=== PATIENT | male | born 1960 | race Two or more races ===

== ENCOUNTER 2019-07-06 00:47 | Inpatient (IN) | payer OTHER ==
[2019-07-06] VITALS (22 sets, daily range): BP systolic 135–172; BP diastolic 66–87
[~2019-07-06] VITALS: Ht 175.3 cm; Wt 93.4 kg
--- NOTE | 2019-07-06 00:50 | NUR ---
PT BIB RA FROM HOME C/O ALTERED MENTAL STATUS. ACCORDING TO RA REPORT, PT WAS BENDING DOWN TO GET SOMETHING WHEN HE LOST CONSCIOUSNESS AND WENT DOWN TO THE FLOOR. PATIENT DID NOT REGAIN CONSCIOUSNESS. MD AT BEDSIDE. RT AT BEDSIDE. RN AT BEDSIDE. AWAITING MD'S ORDERS.
--- NOTE | 2019-07-06 00:53 | NUR ---
SUCCINYLCHOLINE PUSHED 150MG IVP
[2019-07-06] MEDS ORDERED: PROPOFOL 100 ML ONE (00:54)
--- NOTE | 2019-07-06 00:54 | NUR ---
Patient intubated Addendum: 07/06/19 at 0134 by YUKO size 7, with 23 at the lip
--- NOTE | 2019-07-06 00:55 | NUR ---
CODE STROKE CALLED
--- NOTE | 2019-07-06 00:55 | NUR ---
Max person in ED - 07/06/19 at 0153 by YUKO PROPOFOL AT RATE OF 2MG
--- NOTE | 2019-07-06 00:55 | NUR ---
PROPOFOL AT RATE OF 2MG
[2019-07-06] MEDS ORDERED: IV NS 0.9% 500 ML BAG IV ONE (01:00)
[2019-07-06] MEDS ORDERED: SUCCINYLCHOLINE CHLORIDE 20 MG/ML VIAL IV ONE ×2 (01:00→11:04)
--- NOTE | 2019-07-06 01:03 | NUR ---
rushed to CT
[2019-07-06] MEDS ORDERED: CT SWABBABLE VALVE TRANS SET 1 EA INFUS.SET MC ONE (01:05)
[2019-07-06] MEDS ORDERED: IOHEXOL-350 100 ML VIAL IV ONE ×2 (01:05→02:11)
[2019-07-06 01:11] LABS: BASOPHILS # (AUTO) 0.2 /CMM (0.0-0.2); BASOPHILS % (AUTO) 1.6 % (0.0-2.0); EOSINOPHILS % (AUTO) 6.6 % (0.0-6.0); HEMATOCRIT 28 % (39-51); HEMOGLOBIN 8.5 g/dL (13.5-17.5); LYMPHOCYTES # (AUTO) 2.5 /CMM (0.8-4.8); LYMPHOCYTES % (AUTO) 25.9 % (20.0-44.0); MEAN CORPUSCULAR HGB CONC 31 g/dl (31.0-36.0); MEAN CORPUSCULAR VOLUME 79 fL (80-96); MONOCYTES # (AUTO) 1.2 /CMM (0.1-1.30); MONOCYTES % (AUTO) 12.2 % (2.0-12.0); NEUTROPHILS # (AUTO) 5.2 /CMM (1.8-8.9); NEUTROPHILS % (AUTO) 53.7 % (43.0-81.0); PLATELET COUNT (AUTO) 317 /CMM (150-450); RED BLOOD CELL COUNT(AUTO) 3.55 MIL/uL (4.5-6.0); WHITE BLOOD COUNT (AUTO) 9.6 K/uL (4.3-11.0)
--- NOTE | 2019-07-06 01:15 | NUR ---
RT NOTE Pt rec'd on 100% NRB mask with orophrygeal airway in place. pt altered and showed signs of resp distress. pt orally intubated via ETT sz #7.0 secured @ 23CM at the lip per airway protection and MD request. Colormetric CO2 color change confirm. pt auscultated for clear b/s bilaterally. Pt placed on [facility] vent on AC mode settings per md request. Waiting on Chest x ray results. Post intubation ABG to be taken in 15 minutes. Alarms are set and audible. Vent plugged into red outlet. ambu bag bedside. Will continue to monitor closely. Addendum: 07/06/19 at 0147 by JASPER SAMANO RT Amended: Links added.
--- NOTE | 2019-07-06 01:15 | NUR ---
ac at 14. Tidal Volume at 550 100% FiO2. Peep 5
--- NOTE | 2019-07-06 01:22 | NUR ---
PROPOFOL RATE AT 5MCG
--- NOTE | 2019-07-06 01:22 | NUR ---
Max person in ED - 07/06/19 at 0152 by YUKO PROPOFOL RATE AT 5MG
--- NOTE | 2019-07-06 01:27 | NUR ---
[facility]POKE WITH [facility], REQUESTED PATIENTS RECORDS TO BE FAXED OVER.
[2019-07-06 01:31] LABS: ALANINE AMINOTRANSFERASE 44 U/L (12-78); ALKALINE PHOSPHATASE 150 U/L (46-116); ASPARTATE AMINOTRANSFERASE 55 U/L (15-37); BILIRUBIN,DIRECT 0.1 mg/dL (0.0-0.2); BILIRUBIN,TOTAL 0.2 mg/dL (0.2-1.0); CALCIUM, SERUM 7.8 mg/dL (8.5-10.1); CARBON DIOXIDE 22 mmol/L (21-32); CHLORIDE 102 mmol/L (98-107); CREATININE 1.3 mg/dL (0.6-1.3); GLUCOSE 193 mg/dL (74-106); SODIUM SERUM 146 mmol/L (136-145); UREA NITROGEN, BLOOD 12 mg/dL (7-18)
[2019-07-06 01:36] LABS: POTASSIUM 2.6 mmol/L (3.5-5.1)
--- NOTE | 2019-07-06 01:41 | NUR ---
LAMAR CATH 16FR STARTED. STAT LOCK ON LEFT THIGH
[2019-07-06] MEDS ORDERED: IV NS 0.9% 1,000 ML IV ONE (01:42)
[2019-07-06] MEDS ORDERED: PROPOFOL 100 ML IV ONE (01:42)
[2019-07-06] MEDS ORDERED: POTASSIUM CL. PREMIX PERIPHER. 50 ML IV ONE (01:42)
--- NOTE | 2019-07-06 01:43 | NUR ---
URINE COLLECTED AND SENT TO LAB.
--- NOTE | 2019-07-06 01:44 | NUR ---
AT BEDSIDE FOR RE-EVAL
[2019-07-06 01:45] LABS: CHOLESTEROL 108 mg/dL (<200); HDL CHOLESTEROL 40 mg/dL (40-60); LDL 52 mg/dL (0-99); TRIGLYCERIDES 147 mg/dL (30-150)
[2019-07-06] MEDS ORDERED: POTASSIUM CL. PREMIX PERIPHER. 50 ML ONE (01:48)
--- NOTE | 2019-07-06 01:58 | NUR ---
RT AT BEDSIDE FOR ABG DRAW
[2019-07-06] MEDS ORDERED: IV NS 0.9% 250 ML IV ONE (02:11)
[2019-07-06 02:12] LABS: ABG BASE EXCESS -4.9 mmol/L; ABG OXYGEN SATURATION 99.4 % (92.0-98.5); ABG PCO2 33.4 mmHg (35.0-45.0); ABG PH 7.385 (7.350-7.450); ABG PO2 556.4 mmHg (75.0-100.0); AaDO2 123.2 mmHg; MetHb 0.8 % (0.0-1.5); O2Hb 96.6 % (94.0-97.0); SITE, ABG Right Radial; VENT MODE, BG AC 14 550 100% +5
--- NOTE | 2019-07-06 02:12 | NUR ---
Patient sent for Stat CT
--- NOTE | 2019-07-06 02:29 | NUR ---
returned from ct
--- NOTE | 2019-07-06 02:30 | NUR ---
Patient's FiO2 setting now at 40%
[2019-07-06 03:17] LABS: ABG BASE EXCESS -3.9 mmol/L; ABG OXYGEN SATURATION 97.4 % (92.0-98.5); ABG PCO2 36.5 mmHg (35.0-45.0); ABG PH 7.374 (7.350-7.450); ABG PO2 119.6 mmHg (75.0-100.0); AaDO2 123.6 mmHg; MetHb 0.6 % (0.0-1.5); O2Hb 95.8 % (94.0-97.0); SITE, ABG Right Radial; VENT MODE, BG AC 14 550 40% +5
--- NOTE | 2019-07-06 03:41 | NUR ---
CALLED [facility] SPOKE WITH LINDA, HARI MONAE WAS PAGED AND WILL CALL US BACK SHORTLY.
--- NOTE | 2019-07-06 03:51 | NUR ---
BARBARA ESCOBEDO TALKING WITH HARI ESCOBEDO
[2019-07-06] MEDS ORDERED: OSELTAMIVIR PHOSPHATE SUSP 6 MG/ML BOTTLE PO ONE (04:00)
--- NOTE | 2019-07-06 04:00 | NUR ---
RECEIVED REPORT FROM TOSHIA MENA FOR KEESHA.
--- NOTE | 2019-07-06 04:06 | NUR ---
REPORT GIVEN TO CHI POPE. Addendum: 07/06/19 at 0406 by YUKO FOR KEESHA.
--- NOTE | 2019-07-06 04:16 | NUR ---
LUDY IS ROOMMATE - CELL # [phone]
[2019-07-06] MEDS ORDERED: MAGNESIUM HYDROXIDE 30 ML UDC PO PRN (04:30)
[2019-07-06] MEDS ORDERED: ZOLPIDEM TARTRATE 5 MG TABLET PO PRN (04:30)
[2019-07-06] MEDS ORDERED: ONDANSETRON HCL/PF 4 MG/2 ML VIAL IVP PRN (04:30)
[2019-07-06] MEDS ORDERED: Z GUARD REMEDY 2 OZ OINT TP PRN (04:30)
--- NOTE | 2019-07-06 05:28 | NUR ---
ICU 262
[2019-07-06] MEDS ORDERED: Magnesium 1GM/D5W 100ML PREMIX 100 ML IV ONE (05:39)
--- NOTE | 2019-07-06 05:55 | NUR ---
RN OPENING NOTES RECEIVED PATIENT VIA GURNEY, INTUBATED AND SEDATED. MECHANICAL VENT SETTINGS: AC 14, TV 550, FIO2 40%, PEEP 5. SATURATING 100% AT THE MOMENT, NO SOB OR RESPIRATORY DISTRESS NOTED. ON TELE MONITOR SR WITH PVC'S WITH HR 80'S-90'S. IV SITES RIGHT FA 18G, LEFT HAND 18G, AND RIGHT EJ 18G, ALL FLUSHING AND PATENT; RECEIVED PT WITH PROPOFOL RUNNING AT 5MCG. BILATERAL SOFT WRIST RESTRAINTS NOTED FOR PT SAFETY. LAMAR CATH INTACT, DRAINING YELLOW URINE NOTED. SAFETY MEASURES IN PLACE, BED IN LOW AND LOCKED POSITION, SIDE RAILS UP X2, CALL LIGHT WITHIN EASY REACH, HOB ELEVATED. WILL CONTINUE TO MONITOR CLOSELY.
[2019-07-06] MEDS: PROPOFOL 100 ML IV PRN ×2 (06:16→17:35)
[2019-07-06] MEDS: IV NS 0.9% 1,000 ML IV PRN ×2 (06:17→18:16)
[2019-07-06] MEDS: Magnesium 1GM/D5W 100ML PREMIX 100 ML IV SCH ×6 (06:17→14:41)
[2019-07-06 07:19] LABS: BASOPHILS # (AUTO) 0.1 /CMM (0.0-0.2); BASOPHILS % (AUTO) 1.4 % (0.0-2.0); EOSINOPHILS % (AUTO) 1.4 % (0.0-6.0); HEMATOCRIT 28 % (39-51); HEMOGLOBIN 8.6 g/dL (13.5-17.5); LYMPHOCYTES % (AUTO) 17.3 % (20.0-44.0); MEAN CORPUSCULAR HGB CONC 31 g/dl (31.0-36.0); MEAN CORPUSCULAR VOLUME 76 fL (80-96); MONOCYTES # (AUTO) 0.6 /CMM (0.1-1.30); NEUTROPHILS # (AUTO) 4.2 /CMM (1.8-8.9); NEUTROPHILS % (AUTO) 69.9 % (43.0-81.0); PLATELET COUNT (AUTO) 280 /CMM (150-450); RED BLOOD CELL COUNT(AUTO) 3.61 MIL/uL (4.5-6.0)
--- NOTE | 2019-07-06 07:30 | NUR ---
TROUBLE CLERK NOTE CALLED PHARMACY NOTIFIED THAT WE NEED TO HAVE 1 MAG IV TO ADMINISTERED SPOKE WITH TAYA STATED THAT WILL BRING IT WILL F\U
[2019-07-06 07:32] LABS: CALCIUM, SERUM 7.3 mg/dL (8.5-10.1); PHOSPHORUS 3.5 mg/dL (2.5-4.9)
--- NOTE | 2019-07-06 07:34 | NUR ---
RN CLOSING NOTES PATIENT IN BED, SEDATED. ALL HOSPITALIST ADMITTING ORDER ATTENDED. MECHANICAL VENT SETTINGS ORDERED, SATURATING 99% AT THE MOMENT, NO SOB OR RESPIRATORY DISTRESS NOTED. ON TELE MONITOR SR WITH HR 90'S. ALL IV SITES FLUSHING AND PATENT; PROPOFOL RUNNING AT 5MCG. NS RUNNING AT 75ML/HR, NO INFILTRATION NOTED. BILATERAL SOFT WRIST RESTRAINTS NOTED FOR PT SAFETY. LAMAR CATH INTACT. SAFETY MEASURES IN PLACE, BED IN LOW AND LOCKED POSITION, SIDE RAILS UP X2, CALL LIGHT WITHIN EASY REACH, HOB ELEVATED. 1 BAG OF MAGNESIUM GIVEN, 1 MORE BAG (1MG) NEEDS TO BE GIVEN. ENDORSED TO AM RN FOR KEESHA.
--- NOTE | 2019-07-06 08:00 | NUR ---
MAPPING ANALYST NOTE ,PATIENT IN BED SEDATED ON PROCOSOL DRIP AT THIS TIME IN TELE MONITOR SR WITH PVC HR 95 O2 SAT 100% FOE NOW , WITH LAMAR CATH TO GRAVITY WITH YELLOW COLOR URINE ON NPO STATUS AT THIS TIME, WITH SOFT RESTRAIN ORDERED ON IVF ORDERED RT FA RT EI LT HAND HL INTACT AND FLUSHED WELL, WOUND CARE NURSE AT BEDSIDE AND DR HE AT BEDSIDE WITH OK OFF PROPOFOL TO SEE IF RESPONSE TO VERBAL AND TACITLY SIMPLY, BED IN LOWEST AND LOCKED POSITION , ORTAL SUCTION DONE
--- NOTE | 2019-07-06 08:10 | NUR ---
WOUND CARE CONSULT: PT PRESENTS WITH LEFT ARM SKIN TEAR, DRY SCRATCH NOTED TO LOWER BACK, PRESENT ON ADMISSION. PT CURRENTLY INTUBATED. LAMAR CATH NOTED. RECOMMENDATIONS MADE FOR WOUND CARE AND SKIN PROTECTION. DISCUSSED WITH NURSING STAFF. WILL SEE PRN. ESCOBEDO IN AGREEMENT WITH PLAN OF CARE. Addendum: 07/06/19 at 0812 by TREY ABREU WNDNU Amended: Links added.
[2019-07-06 08:24] LABS: MAGNESIUM 1.2 mg/dL (1.8-2.4); POTASSIUM 2.6 mmol/L (3.5-5.1)
[2019-07-06] MEDS: ENOXAPARIN SODIUM 40 MG/0.4 ML DISP.SYRIN SQ SCH (08:29)
[2019-07-06] MEDS ORDERED: GLIP10TA21 PO (08:30)
[2019-07-06] MEDS ORDERED: OMEP20TA5 PO (08:30)
--- NOTE | 2019-07-06 08:44 | NUR ---
STEEL CHIPPER NOTE 2ED ECHO DOING NOW
[2019-07-06] MEDS: POTASSIUM CHLORIDE 20 MEQ POWDER PACKET NG SCH ×4 (09:48→12:08)
--- NOTE | 2019-07-06 09:52 | NUR ---
TRIMMER PRESS CLIPPINGS NOTE OG INSERTED PLACEMENT CHECKED BY AUSCULTATION OF AIR ,CHEST X RAY ORDERED
[2019-07-06 09:59] LABS: THYROID STIMULATING HORMONE 0.803 uIU/mL (0.358-3.74)
[2019-07-06 10:13] LABS: PHOSPHORUS 3.5 mg/dL (2.5-4.9)
--- NOTE | 2019-07-06 12:07 | NUR ---
BUCKET HOOKER NOTE CALLED TO DR QUESADA NOTIFIED THAT T NOW 101.0 ORDERED BLOOD CX AND OK TO GIVE TYLENOL,AFTERWARDS, WILL F\U
[2019-07-06] MEDS: ACETAMINOPHEN 325 MG TABLET PO PRN ×2 (13:06→20:20)
--- NOTE | 2019-07-06 13:36 | NUR ---
RT NOTE: PATIENT RECEIVED ORALLY INTUBATED WITH 7.0 ETT SECURED AT 24 CM MID LIP LINE VIA ANCHOR FAST ON PB 840 VENT. ALARMS VERIFIED AND AUDIBLE. SUCTIONED AND LAVAGED MODERATE-LARGE AMOUNT OF THICK WHITE SECRETIONS. VENT PLUGGED INTO RED OUTLET. AMBU BAG AT [facility].
[2019-07-06 13:39] LABS: CALCIUM, SERUM 7.6 mg/dL (8.5-10.1); CREATININE 0.8 mg/dL (0.6-1.3); MAGNESIUM 2.2 mg/dL (1.8-2.4); POTASSIUM 3.3 mmol/L (3.5-5.1)
--- NOTE | 2019-07-06 14:48 | NUR ---
WAIVER ANALYST NOTE ON DIPRIVAN DRIP ORDERED AT 15 MCG\KG\MIN ,STILL ON SOFT RESTRAIN ORDERED, UNABLE TO REMOVE AT THIS TIME AT RISK TO REMOVE ALL LINES
--- NOTE | 2019-07-06 15:57 | NUR ---
ICU TN NOTE BRITT NEURO RN ORE DRYER AT BEDSIDE AWARE THAT YADI T RECPOME TO TACITLY STIMULI ONLY ON BOTH LEGS AND NO RESPONSE TO VERBAL STIMULI ALSO AWAITING FOE EEG
--- NOTE | 2019-07-06 17:00 | NUR ---
INSTRUMENT LENS GRINDER NOTE BECOME MORE AGITATED AND RESTLESS INCREASED DIPRIVAN TO 15 MCG\KG\MIN, RR 36
--- NOTE | 2019-07-06 17:05 | NUR ---
SANITATION LABORER NOTE EGG DOING NOW, UA COLLECTED ORDERED
[2019-07-06 18:10] LABS: APPEARANCE,URINE SL CLOUDY (CLEAR); BILIRUBIN,URINE NEGATIVE (NEGATIVE); BLOOD, URINE LARGE Ery/uL (NEGATIVE); COLOR,URINE YELLOW (YELLOW); KETONES,URINE TRACE (NEGATIVE); LEUKOCYTE ESTERASE ,URINE NEGATIVE (NEGATIVE); NITRITE, URINE NEGATIVE (NEGATIVE); PROTEIN,URINE TRACE mg/dl (NEGATIVE); UGLUCOSE 500 MG/DL mg/dL (NEGATIVE)
[2019-07-06 18:26] LABS: BACTERIA,URINE Few /HPF (None Seen); RBC,URINE TOO NUMEROUS TO COUN /HPF (0-2); SQUAMOUS EPITHELIAL CELL,UR Few /HPF (None Seen); WBC,URINE 0-2 /HPF (0-3)
--- NOTE | 2019-07-06 18:36 | NUR ---
MANAGER ANDROID NOTE ON PROPOFOL DRIP ORDERED AT 20MCG\KG\MIN , TITRATED PER PROTOCOL, PATIENT BECOME MORE RESTLESS HR 111, FAMILY AT BEDSIDE, CONT ON IVF ORDERED WITH LAMAR CATH TO GRAVITY, CONT ON VENT SETTING ORDERED ORAL SUCTION DONE , KEEP CLEAN DRY , .BED IN LOWEST AND LOCKED POSITION WILL CONT TO MONDOR
--- NOTE | 2019-07-06 20:25 | NUR ---
FOOD SELECTOR: TYLENOL GIVEN FOR ORAL/AXILLARY AZWS=415.8. SR-ST ON TELE MONITOR WT HR IN THE 90s TO LOW 100s. REMAINS SEDATED ON PROPOFOL DRIP AT 20MCG/KG/MIN. ENDOTRACHEAL SUCTIONING DONE WT POSITIVE GAG REFLEX. WITHDRAWS TO LOCALIZED PAIN. WILL CONTINUE TO MONITOR. SAFETY PRECAUTION NOTED AT ALL TIMES.
--- NOTE | 2019-07-06 21:30 | NUR ---
RETAIL COMMISSION SALES ASSOCIATE: REASSESSED AFTER GIVEN TYLENOL AND COOLING MEASURES WT ORAL TEMP. IMPROVED AT 99.5. WILL CONTINUE TO MONITOR.
[2019-07-07] VITALS (28 sets, daily range): BP systolic 133–182; BP diastolic 70–99
[2019-07-07] MEDS: PROPOFOL 100 ML IV PRN ×7 (01:05→20:26)
[2019-07-07 04:44] LABS: BASOPHILS # (AUTO) 0.1 /CMM (0.0-0.2); BASOPHILS % (AUTO) 1.4 % (0.0-2.0); EOSINOPHILS % (AUTO) 1.1 % (0.0-6.0); HEMATOCRIT 26 % (39-51); HEMOGLOBIN 8.1 g/dL (13.5-17.5); LYMPHOCYTES # (AUTO) 1.5 /CMM (0.8-4.8); LYMPHOCYTES % (AUTO) 16.3 % (20.0-44.0); MEAN CORPUSCULAR HGB CONC 31 g/dl (31.0-36.0); MEAN CORPUSCULAR VOLUME 77 fL (80-96); MONOCYTES # (AUTO) 1.1 /CMM (0.1-1.30); MONOCYTES % (AUTO) 11.8 % (2.0-12.0); NEUTROPHILS # (AUTO) 6.4 /CMM (1.8-8.9); NEUTROPHILS % (AUTO) 69.4 % (43.0-81.0); PLATELET COUNT (AUTO) 248 /CMM (150-450); RED BLOOD CELL COUNT(AUTO) 3.35 MIL/uL (4.5-6.0); WHITE BLOOD COUNT (AUTO) 9.3 K/uL (4.3-11.0)
[2019-07-07 05:35] LABS: ALANINE AMINOTRANSFERASE 32 U/L (12-78); ALBUMIN 2.5 g/dL (3.4-5.0); ALKALINE PHOSPHATASE 112 U/L (46-116); ASPARTATE AMINOTRANSFERASE 26 U/L (15-37); BILIRUBIN,TOTAL 0.4 mg/dL (0.2-1.0); CALCIUM, SERUM 7.5 mg/dL (8.5-10.1); CARBON DIOXIDE 29 mmol/L (21-32); CHLORIDE 107 mmol/L (98-107); CREATININE 0.6 mg/dL (0.6-1.3); GLUCOSE 192 mg/dL (74-106); PHOSPHORUS 2.8 mg/dL (2.5-4.9); POTASSIUM 3.1 mmol/L (3.5-5.1); SODIUM SERUM 145 mmol/L (136-145); TOTAL PROTEIN, SERUM 6.2 g/dL (6.4-8.2); UREA NITROGEN, BLOOD 8 mg/dL (7-18)
--- NOTE | 2019-07-07 06:40 | NUR ---
EXPRESSIVE THERAPIST: ORAL TEMP. AT 99.5. CONTINUE COOLING MEASURES. SBP IN THE 150s-170s ESPECIALLY AFTER TURNING AND REPOSITIONING/BED BATH. WILL ENDORSE TO DAY SHIFT FOR FURTHER MD EVAL/RECOMMENDATION OF BP MEDS. REMAINS SEDATED ON DIPRIVAN AT 50MCG/KG/MIN. WITHDRAWS TO TOUCH/LIGHT PAIN. SAFETY PRECAUTION NOTED AT ALL TIMES.
[2019-07-07] MEDS: IV NS 0.9% 1,000 ML IV PRN (06:48)
--- NOTE | 2019-07-07 06:55 | NUR ---
EMR ANALYST: DR. RUSSELL AT BEDSIDE AND MADE AWARE OF HIGH BP TRENDS. AWAITING ORDERS.
--- NOTE | 2019-07-07 07:00 | NUR ---
RN OPENING NOTES PT ON DIPROVAN DRIP AT 50MCG. PT IS INTUBATED AND TOLERATING WELL. PT IS ST ON MONITOR HR 110. PT HAS A LAMAR DRAINING TO GRAVITY.BED IS IN LOWEST AND LOCKED POSITION WITH CALL LIGHT IN REACH. PT IS CURRENTLY SEDATED. REPORT RECEIVED FROM HEAD BOOKKEEPER RN. WILL CONTINUE TO MONITOR.
[2019-07-07] MEDS ORDERED: POTASSIUM CHLORIDE 20 MEQ POWDER PACKET NG SCH (08:00)
[2019-07-07 08:03] LABS: ABG BASE EXCESS 4.6 mmol/L; ABG OXYGEN SATURATION 95.3 % (92.0-98.5); ABG PCO2 37.8 mmHg (35.0-45.0); ABG PH 7.491 (7.350-7.450); ABG PO2 81.8 mmHg (75.0-100.0); AaDO2 87.7 mmHg; COHb 0.5 % (0.5-1.5); MetHb 0.5 % (0.0-1.5); O2Hb 94.3 % (94.0-97.0); PEEP,BG 5 cm H2O; SITE, ABG Right Radial; VT, ABG 550 mL
[2019-07-07] MEDS: ENOXAPARIN SODIUM 40 MG/0.4 ML DISP.SYRIN SQ SCH (09:02)
[2019-07-07] MEDS: NITROGLYCERIN 30 GM TUBE TP SCH ×2 (09:47→20:32)
[2019-07-07] MEDS ORDERED: POTASSIUM CL. PREMIX PERIPHER. 50 ML IV SCH (11:00)
[2019-07-07] MEDS ORDERED: DEXTROSE 50%-WATER 50 ML DISP.SYRIN IV PRN (11:30)
[2019-07-07] MEDS: BLOOD SUGAR DIAGNOSTIC 1 EACH STRIP IN SCH ×3 (12:04→23:50)
[2019-07-07] MEDS ORDERED: LORAZEPAM INJ 2 MG/ML VIAL IV PRN (13:00)
[2019-07-07] MEDS ORDERED: LEVETIRACETAM SOL (5 ML) 100 MG/ML UDC PO ONE (13:00)
--- NOTE | 2019-07-07 14:46 | NUR ---
SPOKE WITH GALILEO FROM CASE MANAGEMENT, PER GALILEO PT WILL BE TRANSFERRED TO [facility] AWAITING FOR WHICH [facility] FACILITY.
--- NOTE | 2019-07-07 18:34 | NUR ---
SPOKE WITH ALESSIA FROM [facility]. [facility] REQUESTING LUMBAR PUNCTURE PRIOR TO TRANSFER TO RULE OUT MENINGITIS. ROOMMATE CLAIMING HE HAS PAPERWORK DESIGNATING HIM MEDICAL DECISION MAKER FOR PT. AWAITING PAPERWORK FOR CONSENT TO BE SIGNED.
--- NOTE | 2019-07-07 19:15 | NUR ---
RN CLOSING NOTES REPORT GIVEN TO DIGITAL STRATEGIST SENIOR MANAGER RN FOR KEESHA. NO SIGNIFICANT CHANGES DURING SHIFT. PT HAS NO FEVERS AND IS SR ON TELE MONITOR 76 CURRENTLY. BED IS LOCEKD AND IN LOWEST POSITION WILL ENDORSE KEESHA TO DIGITAL STRATEGIST SENIOR MANAGER RN.
[2019-07-07] MEDS: LEVETIRACETAM SOL (5 ML) 100 MG/ML UDC PO SCH (20:31)
[2019-07-07] MEDS: HYDROCODONE/APAP 5/325MG 1 EACH TABLET PO PRN (23:35)
[2019-07-08] VITALS (35 sets, daily range): BP systolic 126–171; BP diastolic 66–85
[2019-07-08] MEDS: PROPOFOL 100 ML IV PRN ×7 (00:03→19:58)
[2019-07-08] MEDS: BLOOD SUGAR DIAGNOSTIC 1 EACH STRIP IN SCH ×3 (06:13→17:20)
--- NOTE | 2019-07-08 07:20 | NUR ---
RN OPENING NOTES RECEIVED REPORT FROM DIRECTOR OF MARKET ANALYSIS RN. NO SIGNIFICANT CHANGES DURING DIRECTOR OF MARKET ANALYSIS. PT STILL ON DIPROVAN DRIP. PT IS ST HR 110. ET TUBE SET TO LIP LINE, ADEQUATE CHEST RISE AND FALL SPO2 SATURATION IS 96%. BED IS LOCKED AND IN LOWEST POSITION WILL CONTINUE TO MONITOR.
[2019-07-08 08:42] LABS: ABG BASE EXCESS 0.2 mmol/L; ABG OXYGEN SATURATION 96.9 % (92.0-98.5); ABG PH 7.445 (7.350-7.450); ABG PO2 100.1 mmHg (75.0-100.0); AaDO2 179.8 mmHg; COHb 0.3 % (0.5-1.5); MetHb 1.1 % (0.0-1.5); O2Hb 95.5 % (94.0-97.0); PEEP,BG 5 cm H2O; SITE, ABG Right Radial; VT, ABG 550 mL
[2019-07-08] MEDS: ENOXAPARIN SODIUM 40 MG/0.4 ML DISP.SYRIN SQ SCH (09:00)
[2019-07-08] MEDS: LEVETIRACETAM SOL (5 ML) 100 MG/ML UDC PO SCH (09:15)
[2019-07-08] MEDS: NITROGLYCERIN 30 GM TUBE TP SCH ×2 (09:16→20:43)
[2019-07-08] MEDS: ACETAMINOPHEN 325 MG TABLET PO PRN (10:09)
--- NOTE | 2019-07-08 13:00 | NUR ---
PT IS MORE AGITATED AFTER LUMBAR PUNCTURE. DIPROVAN INCREASED FOR PT SAFETY.
--- NOTE | 2019-07-08 14:49 | NUR ---
RT NOTE: PATIENT RECEIVED ORALLY INTUBATED WITH 7.0 ETT SECURED AT 24 CM MID LIP LINE ON PB 840. VENT. SUCTIONED AND LAVAGED MODERATE-LARGE AMOUNT OF THICK WHITE SECRETIONS. VENT ALARMS VERIFIED AND AUDIBLE. VENT PLUGGED INTO RED OUTLET. AMBU BAG AT [facility].
[2019-07-08 16:19] LABS: CSF GLUCOSE 114 mg/dL (40-70); CSF PROTEIN 40.6 mg/dL (15-45)
--- NOTE | 2019-07-08 18:10 | NUR ---
LUDY RAI'S DPOA WOULD LIKE A CALL TO BE INFORMED OF WHICH [facility] PT WILL BE TRANSFERRED TOO. LUDY NUMBER IS [phone].
--- NOTE | 2019-07-08 19:36 | NUR ---
RN CLOSING NOTES REPORT GIVEN TO BINDER OPERATOR RN FOR KEESHA. PT PLACED ON SOFT WRIST RESTRAINTS FOR SAFETY. PT ET TUBE IN PLACE. PT ON VENTILATOR SETTING BY RT. PT WILL BE TRANSFERRED TO [facility] SOME TIME TONIGHT PER CASE MANAGEMENT, DISCHARGE PAPERWORK DONE. PT IS IN BED HOB ELEVATED. PT IS SR ON MONITOR 83 HR. BED IS LOCKED AND IN LOWEST POSITION WITH LAMAR DRAINING TO GRAVITY. SCD ON BILATERALLY LOWER EXTREMITIES.
--- NOTE | 2019-07-08 20:50 | NUR ---
INFORMED BY HARI THAT THEY WOULD'NT BE TX PT TODAY.
[2019-07-09] VITALS (38 sets, daily range): BP systolic 129–172; BP diastolic 57–94
[2019-07-09] MEDS: BLOOD SUGAR DIAGNOSTIC 1 EACH STRIP IN SCH ×4 (01:00→17:20)
[2019-07-09] MEDS: HYDROCODONE/APAP 5/325MG 1 EACH TABLET PO PRN (01:15)
[2019-07-09] MEDS: PROPOFOL 100 ML IV PRN ×6 (02:12→19:17)
[2019-07-09 08:43] LABS: ABG BASE EXCESS 0.5 mmol/L; ABG PCO2 38.4 mmHg (35.0-45.0); ABG PH 7.428 (7.350-7.450); ABG PO2 94.2 mmHg (75.0-100.0); AaDO2 110.7 mmHg; COHb 0.8 % (0.5-1.5); MetHb 0.3 % (0.0-1.5); O2Hb 95.9 % (94.0-97.0); PEEP,BG 5 cm H2O; SITE, ABG Left Radial; VT, ABG 550 mL
[2019-07-09 08:44] LABS: BASOPHILS # (AUTO) 0.1 /CMM (0.0-0.2); BASOPHILS % (AUTO) 0.7 % (0.0-2.0); EOSINOPHILS % (AUTO) 5.7 % (0.0-6.0); HEMATOCRIT 26 % (39-51); LYMPHOCYTES # (AUTO) 1.4 /CMM (0.8-4.8); LYMPHOCYTES % (AUTO) 14.5 % (20.0-44.0); MEAN CORPUSCULAR HGB CONC 31 g/dl (31.0-36.0); MEAN CORPUSCULAR VOLUME 77 fL (80-96); MONOCYTES # (AUTO) 0.8 /CMM (0.1-1.30); MONOCYTES % (AUTO) 8.5 % (2.0-12.0); NEUTROPHILS # (AUTO) 6.7 /CMM (1.8-8.9); NEUTROPHILS % (AUTO) 70.6 % (43.0-81.0); PLATELET COUNT (AUTO) 306 /CMM (150-450); WHITE BLOOD COUNT (AUTO) 9.5 K/uL (4.3-11.0)
[2019-07-09 08:51] LABS: CALCIUM, SERUM 8.4 mg/dL (8.5-10.1); CREATININE 0.6 mg/dL (0.6-1.3); POTASSIUM 3.4 mmol/L (3.5-5.1)
[2019-07-09 08:57] LABS: ALBUMIN 2.2 g/dL (3.4-5.0); BILIRUBIN,TOTAL 0.4 mg/dL (0.2-1.0); MAGNESIUM 1.5 mg/dL (1.8-2.4); PHOSPHORUS 3.4 mg/dL (2.5-4.9); TOTAL PROTEIN, SERUM 6.3 g/dL (6.4-8.2)
[2019-07-09] MEDS ORDERED: ACYCLOVIR IV 1 GM in IV D5W 250 ML IV SCH (09:00)
[2019-07-09] MEDS ORDERED: FEE PK DOSING 1 MIN EA MC ONE (09:24)
[2019-07-09] MEDS: NITROGLYCERIN 30 GM TUBE TP SCH ×2 (09:36→20:44)
[2019-07-09] MEDS: ENOXAPARIN SODIUM 40 MG/0.4 ML DISP.SYRIN SQ SCH (09:37)
[2019-07-09] MEDS ORDERED: CEFTRIAXONE 2 G in IV D5W 100 ML IV SCH (10:00)
[2019-07-09] MEDS: Magnesium 1GM/D5W 100ML PREMIX 100 ML IV SCH ×4 (10:23→18:44)
[2019-07-09] MEDS: VANCOMYCIN 1.25 GM in IV D5W 250 ML IV SCH ×2 (11:02→23:52)
[2019-07-09] MEDS: POTASSIUM CL. PREMIX PERIPHER. 50 ML IV SCH ×2 (11:54→12:38)
[2019-07-09] MEDS: INSULIN REGULAR, HUMAN 100 UNIT/ML 3 ML VIAL SQ PRN ×3 (12:31→23:57)
--- NOTE | 2019-07-09 15:00 | NUR ---
ICU/RN NOTES PATIENT SEEN AND EVALUATED BY DR. BARNHART, PER DOCTOR TO START CUTTING DOWN PROPOFOL. STARTED TO LOWER PROPOFOL FROM 45 TO 40MCG. WILL CONTINUE TO LOWER TOLERATED. PATIENT CONTINUE TO REMAIN IN STABLE CONDITION. WILL CONTINUE TO MONITOR CLOSELY.
--- NOTE | 2019-07-09 15:54 | NUR ---
ICU/RN NOTES SPOKE TO TOSHIA STERLING FROM [facility]. PER HALLIE THEY ARE STILL LOOKING FOR A PLACEMENT FOR HIM. SHE SAID SHE WILL CALL BACK IF ANYTHING COMES UP. PATIENT CONTINUES TO REMAIN IN STABLE CONDITION. WILL CONTINUE TO MONITOR CLOSELY.
--- NOTE | 2019-07-09 16:10 | NUR ---
ICU/RN NOTES RECEIVED A PHONE CALL FROM DR. BARNHART TO ORDER A CT HEAD WITHOUT CONTRAST. ALL ORDERS NOTED AND CARRIED OUT. PATIENT CONTINUES TO REMAIN IN STABLE CONDITION. WILL CONTINUE TO MONITOR.
[2019-07-09] MEDS: OSELTAMIVIR PHOSPHATE 75 MG CAPSULE PO SCH (16:28)
[2019-07-09] MEDS ORDERED: ZOSYN IVPB 4.5 G in IV D5W 50ml IV ONE (18:00)
--- NOTE | 2019-07-09 18:07 | NUR ---
ICU/RN NOTES SPOKE TO TOSHIA STERLING FROM [facility]. ACCORDING TO HER SHE WILL FOLLOW UP AGAIN WITH THE PATIENT TOMORROW MORNING.
--- NOTE | 2019-07-09 19:07 | NUR ---
ICU/RN NOTES SPOKE TO PATRICK FROM PHARMACY REGARDING THE ZOSYN ATB. ACCORDING TO HIM THEY WILL SEND IT. HAVENT RECEIVED THE MEDICATION YET.
--- NOTE | 2019-07-09 19:18 | NUR ---
ICU/RN CLOSING NOTES PATIENT CONTINUES TO REMAIN IN STABLE CONDITION THROUGHOUT THE SHIFT. PROVIDED COMFORT AND SAFETY. PATIENT ABLE TO TOLERATE MEDICATIONS WELL. PATIENT CARE WAS DONE. ALL NEEDS ANTICIPATED. CALL LIGHT WITHIN REACHED. BED LOCKED AND IN LOWEST POSITION. WILL CONTINUE TO MONITOR CLOSELY. ENDORSED TO PM NURSE FOR KEESHA. ATB ZOSYN WAS ENDORSED WELL TO ADMINISTER WHEN DELIVERED BY PHARMACY.
[2019-07-09] MEDS: ACETAMINOPHEN 650 MG/SUPP.RECT RC PRN (20:26)
--- NOTE | 2019-07-09 20:26 | NUR ---
RN NOTES RECEIVED PATIENT RESTING COMFORTABLY IN BED. IN NO APPARENT DISTRESS, BREATHING EVEN AND UNLABORED. NOTED WITH ELEVATED TEMPERATURE OF 101.7. COOLING MEASURES ADMINISTERED. CALLED MD, SPOKE WITH DOCTOR FLORINDA AND REQUESTED TO CHANGE TYLENOL TABLET TO SUPPOSITORY SINCE PATIENT IS NPO. MD APPROVED. NOTED AND CARRIED OUT
--- NOTE | 2019-07-09 20:57 | NUR ---
PT RCVD TRACH'D ON MECHANICAL VENT WITH CHARTED SETTINGS. SX DONE. PT TRACH IS PATENT AND SECURE. VENT ALARMS APPEAR TO BE FUNCTIONING PROPERLY. VENT PLUGGED INTO RED OUTLET. AMBU BAG AT BEDSIDE. NO SOB NOTED. Addendum: 07/09/19 at 2057 by ABELINO HSIEH RT Amended: Links added. Addendum: 07/10/19 at 0156 by ABELINO HSIEH RT CORRECT DOCUMENTATION PT RCVD ORALLY INTUBATED WITH 7.0 ETT @ 24CM @ LIP ON MECHANICAL VENT WITH CHARTED SETTINGS.
--- NOTE | 2019-07-09 22:06 | NUR ---
RN NOTES ADMINISTERED TYLENOL SUPP, BED BATH DONE. TEMPERATURE STILL HERNANDO TO 102.6 THEN TO 103. WITH HEART RATE OF 130'S. ADMINISTERED ATIVAN, WITH HELP. CONTINUOUS MONITORING, KEPT CLEAN AND DRY.
[2019-07-10] VITALS (45 sets, daily range): BP systolic 100–163; BP diastolic 54–103
[2019-07-10] MEDS ORDERED: PIPERACILLIN /TAZOBACTAM 3.375 G in IV D5W 100 ML IV SCH ×2
[2019-07-10] MEDS: PROPOFOL 100 ML IV PRN ×6 (00:13→19:50)
[2019-07-10] MEDS: BLOOD SUGAR DIAGNOSTIC 1 EACH STRIP IN SCH ×5 (00:29→23:42)
[2019-07-10] MEDS ORDERED: PIPERACILLIN /TAZOBACTAM 3.375 G VIAL IV ONE (02:33)
[2019-07-10] MEDS: PIPERACILLIN /TAZOBACTAM 3.375 G in IV D5W 100 ML IV SCH ×3 (02:34→17:10)
[2019-07-10] MEDS: ACETAMINOPHEN 650 MG/SUPP.RECT RC PRN (04:49)
[2019-07-10 05:11] LABS: CALCIUM, SERUM 8.1 mg/dL (8.5-10.1); CREATININE 0.8 mg/dL (0.6-1.3); MAGNESIUM 1.9 mg/dL (1.8-2.4); POTASSIUM 3.3 mmol/L (3.5-5.1)
[2019-07-10] MEDS: INSULIN REGULAR, HUMAN 100 UNIT/ML 3 ML VIAL SQ PRN ×4 (05:53→23:44)
--- NOTE | 2019-07-10 06:30 | NUR ---
RN NOTES PATIENT'S TEMPERATURE WENT DOWN TO 100.8 AND EVENTUALLY TO 99 AT ABOUT 0200. HEART RATE AT 116 WITH BP'S WNL. AT ABOUT 0500, PATIENT'S TEMP WENT UP TO 103.2, TYLENOL SUPP ADMINISTERED. BED BATH GIVEN. COOLING MEASURES PROVIDED. HEAD OF BED ELEVATED. CALLED MD AND MADE AWARE OF PATIENT' S ON AND OFF TEMPERATURE. NO NEW ORDER OF THIS TIME. CONTINUOUS MONITORING DONE. TEMPERATURE REMAINS AT 103.2.
--- NOTE | 2019-07-10 07:00 | NUR ---
RN NOTES RECEIVED PATIENT ON BED SEDATED,ON DIPRIVAN AT 20 MCG/KG/MIN, ORALLY INTUBATED, TOLERATING CURRENT VENT SETTING WELL, O2 SAT WNL, ON TELE ST, HR IN LOW 100'S, OGT INTACT, T=100.3 AXILLARY , COOLING MEASURES INPLACED, SR UP x3, CALL LIGHT WITHIN EASY REACH, BED LOCKED AND IN LOWEST POSITION, CONTINUE TO MONITOR .
[2019-07-10] MEDS ORDERED: POTASSIUM CHLORIDE 20 MEQ POWDER PACKET NG SCH (08:00)
[2019-07-10] MEDS: OSELTAMIVIR PHOSPHATE 75 MG CAPSULE PO SCH ×2 (08:40→16:20)
[2019-07-10] MEDS: ENOXAPARIN SODIUM 40 MG/0.4 ML DISP.SYRIN SQ SCH (08:40)
[2019-07-10] MEDS: NITROGLYCERIN 30 GM TUBE TP SCH ×2 (09:12→21:48)
--- NOTE | 2019-07-10 12:00 | NUR ---
RN NOTES VSS STABLE, ET TUBE AND ORAL SUCTIONING , CONTINUE TO MONITOR.
[2019-07-10] MEDS: VANCOMYCIN 1.25 GM in IV D5W 250 ML IV SCH (12:38)
--- NOTE | 2019-07-10 16:26 | NUR ---
RT NOTE PT RECEIVED INTUBATED ON MECHANICAL VENTILATION. AMBU BAG @ BEDSIDE. SX DONE, ET TUBE SECURED AND PATENT ON RIGHT LIP LINE. LARGE THICK SECRETIONS NOTED. NO RESP DISTRESS NOTED AT THIS TIME. WILL MONITOR. Addendum: 07/10/19 at 1628 by BELEM HINES RT Amended: Links added.
[2019-07-10] MEDS: ACETAMINOPHEN 325 MG TABLET PO PRN (16:29)
--- NOTE | 2019-07-10 18:00 | NUR ---
RN NOTES PT REMAINS INTUBATED AND SEDATED, ON TELE SR , VSS STABLE, NO SIGNIFICANT CHANGES NOTED ON THIS SHIFT, DIPRIVAN AT 20MCG/KG/ MIN RUNNING , SR UP x3, CALL LIGHT WITHIN EASY REACH, BED LOCKED AND IN LOWEST POSITION, WILL ENDORSE TO GREENS KEEPER NURSE FOR CONTINUITY OF CARE
[2019-07-11] VITALS (42 sets, daily range): BP systolic 136–177; BP diastolic 56–114
[2019-07-11] MEDS: PIPERACILLIN /TAZOBACTAM 3.375 G in IV D5W 100 ML IV SCH ×3 (02:15→17:15)
[2019-07-11] MEDS: ACETAMINOPHEN 650 MG/SUPP.RECT RC PRN (04:30)
[2019-07-11 05:41] LABS: CALCIUM, SERUM 8.3 mg/dL (8.5-10.1); CREATININE 0.6 mg/dL (0.6-1.3); POTASSIUM 3.5 mmol/L (3.5-5.1)
[2019-07-11] MEDS: PROPOFOL 100 ML IV PRN ×2 (06:01→22:43)
[2019-07-11] MEDS: INSULIN REGULAR, HUMAN 100 UNIT/ML 3 ML VIAL SQ PRN ×4 (06:15→23:58)
[2019-07-11] MEDS: BLOOD SUGAR DIAGNOSTIC 1 EACH STRIP IN SCH ×4 (06:16→23:56)
--- NOTE | 2019-07-11 06:57 | NUR ---
RN NOTES IN BED RESTING COMFORTABLY. NO DISTRESS NOTED. BREATHING EVEN UNLABORED, REMAINS INTUBATED AND SEDATED. VENT SETTING WELL TOLERATED. TEMPERATURE REMAINS AT 100.1 - 100.4. COOLING BLANKET APPLIED, COOLING MEASURES PROVIDED. TYLENOL SUPP ADMINISTERED. PATIENT REMAINS FEBRILE. KEPT CLEAN AND DRY. WILL ENDORSE TO NEST SHIFT FOR CONTINUITY OF CARE.
[2019-07-11 08:33] LABS: ABG BASE EXCESS -2.3 mmol/L; ABG PCO2 31.2 mmHg (35.0-45.0); ABG PO2 121.9 mmHg (75.0-100.0); AaDO2 91.4 mmHg; COHb 0.3 % (0.5-1.5); MetHb 0.5 % (0.0-1.5); O2Hb 97.2 % (94.0-97.0); PEEP,BG 5 cm H2O; SITE, ABG Left Radial; VENT MODE, BG AC 35%; VT, ABG 550 mL
[2019-07-11] MEDS: OSELTAMIVIR PHOSPHATE 75 MG CAPSULE PO SCH (09:00)
--- NOTE | 2019-07-11 09:00 | NUR ---
RN NOTE STOPPED PROPOFOL DRIP. MADE AWARE.
[2019-07-11] MEDS: NITROGLYCERIN 30 GM TUBE TP SCH ×2 (09:40→21:56)
[2019-07-11] MEDS: ENOXAPARIN SODIUM 40 MG/0.4 ML DISP.SYRIN SQ SCH (09:41)
[2019-07-11] MEDS ORDERED: CLONIDINE HCL 0.2MG/24H PTWK 1 EA PATCH TD SCH (11:00)
[2019-07-11] MEDS ORDERED: JEVITY 1.2 CAL 1,000 ML BOTTLE NG PRN (11:30)
--- NOTE | 2019-07-11 12:30 | NUR ---
RN NOTE PATIENT STILL RUNNING LOW GRADE FEVER. COOLING MEASURES IMPLEMENTED.
[2019-07-11] MEDS ORDERED: JEVITY 1.2 CAL 1,000 ML BOTTLE GT PRN (16:30)
--- NOTE | 2019-07-11 19:30 | NUR ---
ELECTRONIC COMPONENT PROCESSOR NOTE [facility] CALLED AND INFORMED THAT PT WILL BE TRANSPORTED TONIGHT TO [facility] DUE TO SOME WATER LEAKING THERE. FAMILY INFORMED ABOUT THIS CHANGE. ALSO CHARGE NURSE INFORMED.
--- NOTE | 2019-07-11 20:00 | NUR ---
DRYING MACHINE TENDER NOTE RECEIVED PT IN BED SEDATED. ON VENT/ETT TOLERATING THE SETTINGS WELL. NO DISTRESS OR DISCOMFORT NOTED. NO S/S OF PAIN NOTED. OT FEEING IN IT PLACE, INFUSING JEVITY AT 40 ML/HR, 20 ML RESIDUAL NOTED AT THIS TIME. JORDAN MIDLINE INTACT AND PATENT INFUSING PROPOFOL 5MCG/KG/MIN, AND RFA #20 G NS TKO. NO S/S OF INFILTRATION NOTED. ON TELE MONITOR SR HR 61. PT REMAIN WITH COOLING BLANKET, RECTAL TEMP 99.9. F/C INTACT AND PATENT DRAINING YELLOWISH COLOR URINE. BILATERAL SOFT WRIST RESTRAINTS ON. SKIN AROUND THE RESTRAINTS WNL. REPOSITION HIM Q2H. KEPT HIM DRY AND CLEAN. ALL NEEDS ATTENDED. SIDE RAILS UP X 3 AND CALL LIGHT WITHIN REACH. VSS.
[2019-07-12] VITALS (30 sets, daily range): BP systolic 133–161; BP diastolic 50–84
[2019-07-12] MEDS: PIPERACILLIN /TAZOBACTAM 3.375 G in IV D5W 100 ML IV SCH ×2 (01:26→10:00)
--- NOTE | 2019-07-12 04:00 | NUR ---
COTTON OPENER NOTE BED BATH GIVEN, ALSO CHANGED THE LINENS. REPOSITION HIM Q2H, KEPT HIM DRY AND CLEAN. BODY TEMP WNL.
[2019-07-12 05:21] LABS: CALCIUM, SERUM 8.4 mg/dL (8.5-10.1); CREATININE 0.7 mg/dL (0.6-1.3)
[2019-07-12 05:50] LABS: POTASSIUM 2.8 mmol/L (3.5-5.1)
[2019-07-12] MEDS: BLOOD SUGAR DIAGNOSTIC 1 EACH STRIP IN SCH ×3 (06:05→17:42)
[2019-07-12] MEDS: INSULIN REGULAR, HUMAN 100 UNIT/ML 3 ML VIAL SQ PRN ×3 (06:07→17:42)
[2019-07-12] MEDS ORDERED: POTASSIUM CHLORIDE 10 MEQ/50 ML PREMIXED IVPB FOR PERIPHERAL LINE IV ONE (06:30)
[2019-07-12] MEDS ORDERED: POTASSIUM CL. PREMIX PERIPHER. 50 ML IV SCH ×2 (07:00→13:00)
--- NOTE | 2019-07-12 07:03 | NUR ---
RADIATOR REPAIRER NOTE PT REMAIN HERE, HARI DIDN'T CALLED BACK FOR PICKUP. NO CHANGE IN CONDITION. ENDORSE TO DAY SHIFT NURSE BOOM.
[2019-07-12] MEDS: ACETAMINOPHEN 650 MG/SUPP.RECT RC PRN ×2 (07:36→15:37)
--- NOTE | 2019-07-12 07:37 | NUR ---
RN NOTE: Received patient in bed, sedated and intubated with ETT 7.0 attached to lip line at 23.0 cm. Respiration even and unlabored saturating 100% with current vent setting. HOB elevated. OGT feeding of Jevity 1.2 @40ml/hr with minimal residual. Price catheter in placed with clear caridad urine draining to gravity. No hematuria noted. (R) UA midline in placed infusing Propofol @5mcg/min. Cooling blanket was in placed. Febrile. Skin warm to touch. Pending transfer to [facility]. Awaiting for a bed availability. Bed alarmed and locked at all times. Needs anticipated.
[2019-07-12] MEDS: NITROGLYCERIN 30 GM TUBE TP SCH (08:42)
[2019-07-12] MEDS: POTASSIUM CHLORIDE 20 MEQ POWDER PACKET GT SCH ×4 (08:42→11:42)
[2019-07-12] MEDS: ENOXAPARIN SODIUM 40 MG/0.4 ML DISP.SYRIN SQ SCH (08:44)
[2019-07-12 09:06] LABS: *WEST NILE VIRUS IgG, CSF Positive (Negative)
[2019-07-12 10:07] LABS: *WEST NILE VIRUS IgM, CSF Negative (Negative)
[2019-07-12 10:08] LABS: ABG BASE EXCESS 1.4 mmol/L; ABG OXYGEN SATURATION 97.1 % (92.0-98.5); ABG PCO2 34.7 mmHg (35.0-45.0); ABG PH 7.474 (7.350-7.450); ABG PO2 104.1 mmHg (75.0-100.0); AaDO2 105.1 mmHg; COHb 0.3 % (0.5-1.5); MetHb 0.4 % (0.0-1.5); O2Hb 96.4 % (94.0-97.0); PEEP,BG 5 cm H2O; SITE, ABG Right Radial; VT, ABG 550 mL
--- NOTE | 2019-07-12 10:11 | NUR ---
RN NOTE: ABG result was reported to Dr. Cruz. No new order was given by MD. Will continue with the current mechanical ventilator setting.
--- NOTE | 2019-07-12 10:27 | NUR ---
RN NOTE: Clarified with Dr. Hicks regarding the patient's tube feeding. MD was informed of the dietitian's recommendation of Glucerna 1.2 @ 25ml/hr with a goal of 40ml/hr while on Diprivan drip. MD agreed. New tube feeding was ordered. Called and spoke with Lyndsey from the kitchen for the new tube feeding order.
[2019-07-12] MEDS ORDERED: GLUCERNA 1.2 1,000 ML BOTTLE NG PRN (10:30)
--- NOTE | 2019-07-12 12:14 | NUR ---
RN NOTE: Received a telephone call from Cherie from [facility]'s transfer center and gave updates regarding the patient's current lab results for the day and condition. Per Cherie, she will work on the patient's possible transfer within today. ESTEFANY Erazo was present at the bedside and was informed about the phone call from Cherie.
--- NOTE | 2019-07-12 12:40 | NUR ---
RN NOTE: Clarified with Dr. Hicks regarding the Potassium Chloride replacements ordered, but he was informed about the replacements ordered this morning by Dr. Neely (truss maker). Per LESLIE ESCOBEDO his potassium replacement order. was also aware of the triglyceride level of 196 and per MD no changes on the Diprivan order. Called and spoke with Odessa from the pharmacy that Dr. Hicks was aware of the triglyceride level and no changes on the current sedation medication.
[2019-07-12] MEDS: PROPOFOL 100 ML IV PRN (12:46)
--- NOTE | 2019-07-12 15:54 | NUR ---
RN NOTE: Received a phone call from Velma ( internet marketing analyst) and she gave the transfer information to [facility] for the patient. Telephone #: for report [phone] with Admitting MD: Dr. Castillo to Room 6324 and pick-up time will be at 1700 today.
--- NOTE | 2019-07-12 16:54 | NUR ---
RN NOTE: Called and spoke with Dea POPE from [facility] and gave a report regarding the patient's lateral transfer to ICU Room 6325 according to Nurse Dea and she was informed of the cellphone number of Ruben Acosta ([facility]). Called and spoke with Ruben (ESTEFANY) regarding the patient's transfer to [facility] [place] today at 1700. Telephone number to [facility] was given to Ruben [phone]. Awaiting for the ambulance to pick-up the patient.
--- NOTE | 2019-07-12 18:09 | NUR ---
MISSILE INSPECTOR PREFLIGHT NOTE: Patient was transported to [facility] via [facility] with [employer] ambulance event coordinator marketing and sales via ACLS protocol. All clothes were released with the patient including the paperwork and CD imaging for the patient's transfer. Patient was afebrile upon transfer and continuous Diprivan drip was infusing to the patient upon transfer via (R) UA midline. Called and spoke with Castro Acosta (ESTEFANY) was informed of the transfer and according to him, he took the patient's wallet with him. Only clothes were found at the bedside. Discharge paperwork was released to the patient.
== END 2019-07-12 18:10 | disposition short-term general hospital (02) | DRG 207 ==
LOC: ER 00:49 → ICU 05:29
PROVIDERS: ADMIT Nurse Practitioner Acute Care; ATTEND Internal Medicine
PROC: 5A1955Z Respiratory Ventilation, Greater than 96 Consecutive Hours (ICD-10-PCS; principal; 2019-07-06)
PROC: 0BH17EZ Insertion of Endotracheal Airway into Trachea, Via Natural or Artificial Opening (ICD-10-PCS; principal; 2019-07-06)
DX: J96.01 Acute respiratory failure with hypoxia (principal); A92.30 West Nile virus infection, unspecified; E44.1 Mild protein-calorie malnutrition; G93.49 Other encephalopathy; E87.0 Hyperosmolality and hypernatremia; J98.11 Atelectasis; N17.9 Acute kidney failure, unspecified; J96.02 Acute respiratory failure with hypercapnia; E83.42 Hypomagnesemia; R79.89 Other specified abnormal findings of blood chemistry; E88.09 Other disorders of plasma-protein metabolism, not elsewhere classified; Z68.30 Body mass index [BMI] 30.0-30.9, adult; E87.6 Hypokalemia; E11.9 Type 2 diabetes mellitus without complications; R55 Syncope and collapse; E86.0 Dehydration; I50.9 Heart failure, unspecified; J32.4 Chronic pansinusitis
CPT/HCPCS: 31720; 36415; 36569; 36600; 62270; 70450-TC; 70496-TC; 70498-TC; 71045-TC; 80048-TC; 80053-TC; 80061-TC; 80076-TC; 80202-TC; 80305; 81000-TC; 82728-TC; 82803-TC; 82962-TC; 83540-TC; 83735-TC; 84100-TC; 84439-TC; 84443-TC; 84478-TC; 84484-TC; 85025-TC; 85378-TC; 85730-TC; 86694; 86788; 86789; 86803; 87040-TC; 87070-TC; 87081-TC; 87086-TC; 88112-TC; 88305-TC; 88312-TC; 89051-TC; 93307-TC; 94002-TC; 94003-TC; 94760-TC; 95819-TC; 99082-TC; G0378; J0133; J0330; J0696; J1650; J1815; J1953; J2060; J2405; J2543; J3370; J3475; J3480; J3490; J7030; J7040; J7050; J7060; Q9967